=== PATIENT | male | born 1965 | race Two or more races ===

== ENCOUNTER 2023-12-14 05:46 | Day surgery (SDC) | payer OTHER ==
[2023-12-12 10:20] LABS: Urine Bacteria None Seen /hpf (None Seen)
[2023-12-12 10:43] LABS: Basophils # (auto) 0.1 10 ^3/uL (0-0.2); Basophils % (auto) 1.2 % (0.0-2.0); Eosinophils # (auto) 0.2 10 ^3/uL (0-0.8); Eosinophils % (auto) 3.5 % (0.0-7.0); Hematocrit 43.4 % (41.0-53.0); Hemoglobin 15.1 g/dL (13.5-17.5); Lymphocytes # (auto) 1.7 10 ^3/uL (0.4-5.4); Lymphocytes % (auto) 24.5 % (10.0-50.0); Mean Corpuscular Hemoglobin 32.1 pg (28.0-32.0); Mean Corpuscular Hgb Conc. 34.7 g/dL (32.0-36.0); Mean Corpuscular Volume 92.5 fL (80.0-100.0); Monocytes # (auto) 0.6 10 ^3/uL (0-1.3); Monocytes % (auto) 8.7 % (0.0-12.0); Neutrophils # (auto) 4.3 10 ^3/uL (1.6-8.6); Neutrophils % (auto) 62.1 % (37.0-80.0); Platelet Count (auto) 230 10^3/uL (140-450); Red Blood Cells 4.69 10^6/uL (4.5-5.90); Red Cell Distribution Width 13.1 % (11.8-14.3); White Blood Cell 6.9 10^3/uL (4.4-10.8)
[2023-12-12 10:58] LABS: Urine Blood Negative /uL (Negative); Urine Clarity Clear (Clear); Urine Color Light-Yellow (Yellow); Urine Protein, UAD Negative (Negative); Urine Specific Gravity 1.021 (1.001-1.035); Urine Urobilinogen Normal (Negative); Urine WBC <1 /hpf (0 - 3)
[2023-12-12 11:00] LABS: Partial Thromboplastin Time 25.2 SEC (24.5-34.5); Prothrombin Time 10.6 sec (9.3-11.8)
[2023-12-12 11:06] LABS: Alanine Aminotransferase 41 U/L (7-40); Albumin 4.5 g/dL (3.2-4.8); Alkaline Phosphatase 85 U/L (46-116); Anion Gap 3 (5-15); Aspartate Aminotransferase 22 U/L (13-40); BUN/Creatinine Ratio 13.7 (10.0-20.0); Blood Urea Nitrogen 13 mg/dL (9-23); Carbon Dioxide 29 mmol/L (20-31); Chloride 109 mmol/L (98-107); Glucose 101 mg/dL (74-106); Potassium 4.1 mmol/L (3.5-5.1); Sodium 141 mmol/L (136-145)
[2023-12-12 11:07] LABS: Bilirubin, Total 0.7 mg/dL (0.2-1.0); Total Protein 7.7 g/dL (5.7-8.2)
[~2023-12-14] VITALS: Ht 177.8 cm; Wt 92.1 kg
[~2023-12-14 05:46] MED LIST: CHOL20007 PO; IBUP-1456 PO; SILD50TA PO
[2023-12-14] MEDS ORDERED: ceFAZolin 2 GM/D5W100ml 100 ML IV ONE (06:25)
[2023-12-14] MEDS ORDERED: fentaNYL CITRATE 100 MCG/2 ML VL ONE (07:28)
[2023-12-14] MEDS ORDERED: MIDAZOLAM HCL 2MG/2ML 2ml VIAL (1mg/ml) ONE (07:29)
[2023-12-14] MEDS ORDERED: SUCCINYLCHOLINE CHLORIDE 20 MG/ML 10ML VIAL IV ONE (07:29)
[2023-12-14] MEDS ORDERED: MEPERIDINE HCL (50 MG/ML) 1 ML VIAL ONE (07:29)
[2023-12-14] MEDS ORDERED: LIDOCAINE 2% JELLY 11ml (GLYDO) ONE (07:36)
[2023-12-14] MEDS ORDERED: KETOROLAC TROMETH 30 MG/ML 1ML VIAL IV ONE (08:00)
[2023-12-14] MEDS ORDERED: ePHEDrine SULFATE 50 MG/ML AMP IV PRN (08:00)
[2023-12-14] MEDS ORDERED: MORPHINE SULFATE 4 MG/ML SYR/VIAL IV PRN (08:00)
[2023-12-14] MEDS ORDERED: MIDAZOLAM HCL 2MG/2ML 2ml VIAL (1mg/ml) IV PRN (08:00)
[2023-12-14] MEDS ORDERED: hydrALAZINE HCL 20 MG/ML VL IV PRN (08:00)
[2023-12-14] MEDS ORDERED: ONDANSETRON HCL 4 MG/2 ML VIAL IV ONE (08:00)
[2023-12-14] MEDS ORDERED: HYDROmorphone HCL 2 MG/ML VL/or syr IV PRN (08:00)
[2023-12-14] MEDS ORDERED: MINERAL OIL TOPICAL 10ml TOP ONE (08:14)
[2023-12-14] MEDS ORDERED: ONDANSETRON HCL 4 MG/2 ML VIAL ONE (08:31)
[2023-12-14] MEDS ORDERED: SUGAMMADEX 200mg/2ml Vial (100MG/ML) IV ONE (09:26)
[2023-12-14] MEDS ORDERED: HYDR1TAB97 PO ×2 (09:27→09:28)
[2023-12-14] MEDS ORDERED: ASPI-498 OR (09:29)
[2023-12-14] MEDS ORDERED: CEPH500C PO (09:29)
[2023-12-14 09:35] VITALS: TEMP 97.4; O2SAT 98
--- NOTE | 2023-12-14 09:39 | DVHOP2 ---
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 These include but are not limited to complications of anesthesia, postoperative infection, incomplete relief of symptoms, recurrence of symptoms, damage to blood vessels, nerves and tendons, deep venous thrombosis, pulmonary embolism and possible need for repeat surgery in the future. Complications: None Estimated Blood Loss: Less than 5 mL Indications for Surgery: The patient is a 58-year-old male who presented to the clinic with a history of shoulder pain. Clinical and radiological evaluation demonstrated a high-grade partial/full-thickness rotator cuff tear. Nonoperative and operative management options were discussed. Given the young age of the patient. Surgery in the form of shoulder arthroscopy, rotator cuff repair was discussed as he had failed nonoperative management. Possible biceps tenodesis and subacromial decompressio n was also discussed and agreed upon. Risks and complications were also discussed. Name of Procedure Performed Left shoulder arthroscopy with rotator cuff repair, subacromial decompression, chondroplasty, microfracture. Procedure Details Procedure Details: The patient was identified in the preoperative holding area and the surgical site was marked. The consent was verified. The patient was brought into the operating room and placed supine on the operating table. General anesthesia was administered. The beachchair attachment was applied to the operating table. The patient was now brought up into the beachchair position, approximately 60 degrees. The arm was prepped and draped in the usual sterile manner. The arm was placed in the attachment for the spyder, mechanical arm mayers. The extremity was examined under anesthesia and was found to have good passive range of motion. A timeout was performed to confirm the identity of the patient, the nature of surgery, the site of surgery, the available of implants and x-rays and allergies to medications A standard posterior portal established. A 30 degree scope was inserted A standard anterior portal was established. A probe was inserted and the findings are as follows: 1. Intact subscapularis tendon 2. Normal biceps tendon 3. Circumferential degenerative labral tear 4. Grade 3 chondromalacia anterior portion of the humeral head, near full- thickness, small area 5. Significant synovitis 6. High-grade partial rotator cuff tear Chondroplasty of the cartilage defect was performed. Microfracture was done with the help of a special shaver attachment. 4-5 holes were drilled in the full-thickness cartilage defect area. The subacromial space was entered. Significant bursitis was noted. Decompression was carried out with bursectomy. The rotator cuff tear was visualized. A PDS stitch was passed where the high-grade partial articular tear was noted. However there was a large bursal sided tear and the tear was easily identified. This was debrided. This was a small sized tear after debridement. Footprint was cleared. Rotator interval was also released. I decided to do a double row repair for this tear. A medial row Arthrex all suture anchor was inserted. A drill guide was inserted. A drill was inserted. The anchor was inserted. The sutures were sequentially inserted. The repair stitch was inserted on the medial portion. Next was passed into the loop portion. This was now pulled from the tape and the knotless suture was cinched for excellent medial row repair. The fiber tapes were passed laterally along the medial cable of the rotator cuff. These were now passed through the lateral row anchor. This was used as per manufacture's guidelines. A punch was used. Next, the anchor was used and inserted into the bone. Good fixation was noted. Subacromial decompression was completed with acromioplasty to remove approximately 5 mm of acromion as it was downsloping in nature. Irrigation was given and the skin portals were closed with 2-0 nylon Sterile dressing was applied. Local anesthetic was given. Shoulder immobilizer was applied Disposition: Good, the patient was extubated and taken to recovery without any complications. The patient was examined in the recovery and had intact neurovascular exam Plan: To remain in the brace. Follow-up in 1 week. Condition Good Disposition Home BIANKA BECKWITH MD Dec 14, 2023 09:39
[2023-12-14 10:27] VITALS: BP 109/67; PULSE 65; RESP 14; O2SAT 95
[2023-12-14] MEDS: ROPIVACAINE 0.5% (5MG/ML) 20ML AMPULE IJ ONE (11:01)
== END 2023-12-14 10:36 | disposition home or self-care (01) ==
LOC: SUR 05:46
PROVIDERS: ATTEND Orthopaedic Surgery Sports Medicine
DX: M75.112 Incomplete rotator cuff tear or rupture of left shoulder, not specified as traumatic (principal); M75.41 Impingement syndrome of right shoulder; M25.812 Other specified joint disorders, left shoulder; M94.212 Chondromalacia, left shoulder; M65.812 Other synovitis and tenosynovitis, left shoulder; M19.012 Primary osteoarthritis, left shoulder; S43.402A Unspecified sprain of left shoulder joint, initial encounter; Z87.891 Personal history of nicotine dependence; Z82.49 Family history of ischemic heart disease and other diseases of the circulatory system; Z82.3 Family history of stroke; Z83.3 Family history of diabetes mellitus; Z82.61 Family history of arthritis; X58.XXXA Exposure to other specified factors, initial encounter; Y93.89 Activity, other specified; Y92.89 Other specified places as the place of occurrence of the external cause; Y99.8 Other external cause status
CPT/HCPCS: 29826; 29827; 29999; 36415; 64415; 80053; 81001; 85025; 85610; 85730; C1713; C1776; J0330; J2175; J2250; J2405; J2795; J3010; A4565